=== PATIENT | female | born 1950 | race Two or more races ===

== ENCOUNTER 2023-06-09 17:13 | Emergency (ER) | payer OTHER ==
[~2023-06-09] VITALS: Ht 162.6 cm; Wt 65.8 kg
[2023-06-09] MEDS ORDERED: LEVOTHYROXINE25 MCG (17:28)
[2023-06-09] MEDS ORDERED: KETOROLAC TROMETHAMINE 30 MG VIAL IM ONE (19:45)
[2023-06-09] MEDS ORDERED: ORPHENADRINE CITRATE 30 MG/ML AMPUL IM ONE (19:45)
== END 2023-06-09 21:35 | disposition home or self-care (01) ==
LOC: ER 17:13
DX: S59.802A Other specified injuries of left elbow, initial encounter (principal); W01.0XXA Fall on same level from slipping, tripping and stumbling without subsequent striking against object, initial encounter; Y93.89 Activity, other specified; Y92.480 Sidewalk as the place of occurrence of the external cause; S29.8XXA Other specified injuries of thorax, initial encounter
CPT/HCPCS: 96372; 99282; J1885; J2360